=== PATIENT | male | born 1965 | race Caucasian/White ===

== ENCOUNTER → 2020-03-01 | Outpatient (CLI) | payer BC ==
[~2020-03-01] MED LIST: DARVOCET-N 1001 EACH PO; HYDROCODON-ACE1 EAC8 PO; HYDROCODONE-APA1 TA1 PO; NEURONTIN 300300 M1 PO; NOHOMEMEDICATIONS; NORCO 7.5-3251 EACH PO; RELAFEN750 MG PO; TRAMADOL 50 MG50 MG PO
== END ==
LOC: LAB 08:44
PROVIDERS: ATTEND Neuromusculoskeletal Medicine & OMM
DX: Z20.828 Contact with and (suspected) exposure to other viral communicable diseases (principal)